=== PATIENT | male | born 1960 | race Caucasian/White ===

== ENCOUNTER → 2016-11-04 | Day surgery (SDC) | payer BC ==
[~2016-11-04] MED LIST: Lactated Ringers 1,000 ML IV SCH; Propofol 200 MG/20 ML SDV IV ONE
[2016-11-04 12:13] VITALS: BP 135/87
--- NOTE | 2016-11-04 13:49 | OR ---
DATE OF OPERATION: 11/04/2016 PREOPERATIVE DIAGNOSIS: FOLLOWUP POLYPS. POSTOPERATIVE DIAGNOSIS: FOLLOWUP POLYPS. SURGEON: Osvaldo Grant MD PROCEDURE: FULL-LENGTH COLONOSCOPY. 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 COMPLICATIONS: None. SPECIMEN: None. FINDINGS: 1. Full-length colonoscopy. 2. Minimal sigmoid diverticulosis. 3. No polyp recurrence. RECOMMENDATIONS: Routine followup per ACS guidelines. INDICATIONS: The patient has a history of prior colonoscopies with multiple polyps removed in the past. He is due for a 5-year followup. DESCRIPTION OF PROCEDURE: The patient was prepped and draped, placed in the left lateral decubitus position. A lubricated Olympus colonoscope was inserted and easily advanced to the cecum. Direct visualization of the ileocecal valve and appendiceal orifice was accomplished. Bowel prep was fine. Upon withdrawal of the scope throughout the entire length of the colon, I found no signs of any polyps, mass, ulceration, or bleeding sites. No vascular abnormalities or signs of colitis. There were a few scattered diverticula in the sigmoid area, but very minimal in severity. The rectal vault appeared benign. Retroflexion of the scope in the rectum showed no anal lesions. Air was then suctioned. Scope was removed without complication. TIKI/EROS /[id number]
== END ==
LOC: CC.SDS 10:04
PROVIDERS: ATTEND Family Medicine
DX: Z12.11 Encounter for screening for malignant neoplasm of colon (principal); Z86.010 Personal history of colon polyps; K57.30 Diverticulosis of large intestine without perforation or abscess without bleeding; I11.9 Hypertensive heart disease without heart failure
CPT/HCPCS: 45378; J2704; J7120

== ENCOUNTER → 2019-07-26 | Day surgery (SDC) | payer BC ==
[~2019-07-26] MED LIST changes: +Neostigmine Methylsulfate 10 MG/10 ML MDV IV ONE; +fentaNYL 100 MCG/2 ML SDV IV ONE
[2019-07-26 13:26] VITALS: BP 145/77; PULSE 64
--- NOTE | 2019-07-29 08:56 | OR ---
DATE OF OPERATION: 07/26/2019 PREOPERATIVE DIAGNOSIS: 1. GASTROESOPHAGEAL REFLUX DISEASE. 2. SEVERE HALITOSIS. POSTOPERATIVE DIAGNOSIS: 1. YEAST PHARYNGITIS. 2. GRADE 1 REFLUX ESOPHAGITIS. SURGEON: Osvaldo Grant MD PROCEDURE: EGD WITH BIOPSY X2, CHIARA WITH YEAST CULTURE, POSTERIOR PHARYNX. ANESTHESIA: MAC. COMPLICATIONS: None. SPECIMEN: 1. Antral CHIARA. 2. Distal esophageal biopsy x2. 3. BRENDAN and yeast culture, posterior pharynx, hypopharynx region. FINDINGS: 1. Full-length EGD. 2. Grade 1 reflux esophagitis. 3. Pharyngeal thrush, posterior pharynx, hypopharynx region. RECOMMENDATIONS: The patient will be placed on Diflucan and nystatin. He has already taken PPI for his reflux. He will have close followup with Dr. Federico Guo. INDICATIONS: The patient has been having ongoing issues with severe halitosis and some posterior throat pain. I believe that 1 time he was put on some nystatin. He has no obvious lesions around the mouth. Dr. Guo was concerned about possible bezoar or severe reflux, ulcer, etc. and sent him for diagnostic EGD. DESCRIPTION OF PROCEDURE: The patient was prepped and draped, placed in the left lateral decubitus position with the head of the bed elevated. A lubricated Olympus gastroscope was inserted over a bit, advanced to the posterior pharynx and hypopharyngeal region where he has a lot of thick heavy white plaque consistent with yeast. We did do a brush biopsy of this for culture and BRENDAN. The scope was advanced into the esophagus, for the most part unremarkable until its most distal portion around 38 to 39 cm, the patient has a little linear erosion consistent with grade 1 reflux esophagitis. No hernia present. No stricturing or Rios's changes. Biopsy x2 of the distal esophagus was taken. The scope was advanced through the stomach and pylorus into the second portion of duodenum. This and the duodenal bulb were completely unremarkable. The scope was brought back into the stomach and retroflexed. The upper fundus and cardia were benign. Upon straightening, the rest of the fundus and antrum were completely unremarkable. A CLOtest was obtained. Air was then suctioned and the scope removed without complication. TIKI/EROS /[id number]
== END ==
LOC: CC.SDS 11:54
PROVIDERS: ATTEND Family Medicine
DX: K21.0 Gastro-esophageal reflux disease with esophagitis (principal); J02.9 Acute pharyngitis, unspecified; B37.89 Other sites of candidiasis; R19.6 Halitosis
CPT/HCPCS: 43239; 87081; 87220; J2704; J2710; J3010; J7120